=== PATIENT | female | born 1975 | race Caucasian/White ===

== ENCOUNTER 2024-12-05 11:15 | Day surgery (SDC) | payer BC, MEDICARE, SELFPAY ==
[2024-12-03 14:11] VITALS: BMI 28.5
[2024-12-05 11:32] VITALS: BP 113/69; PULSE 87; RESP 16; TEMP 36.1; O2SAT 100
--- NOTE | 2024-12-05 11:47 | P.HP_ITS ---
History of Present Illness *Admission Date: 12/05/24 *Reason for visit:: Howell syndrome *History of present illness: Mrs. Allison is a 49-year-old female with a history of stage II ascending colon cancer (T3 N0 M0) and had prior right hemicolectomy. 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 She is here for surveillance EGD and colonoscopy. The examination is deemed medically necessary for surveillance. The patient has been seen, interviewed and examined prior to the procedure by both myself and the anesthesia provider. [facility] Disclaimer: The information contained in this section may have been updated after the patient was seen, as this information can be updated by other users. Medical History Irritable bowel syndrome with mixed bowel habits Sucrase-isomaltase deficiency Anxiety Payr's syndrome Migraine H/O colon cancer, stage II Howell syndrome Seizures Surgical History H/O wrist surgery Status post VNS (vagus nerve stimulator) placement History of colon resection H/O: hysterectomy History of cholecystectomy Family History Family/Other Colon cancer Stomach cancer Social History Smoking Status: Never smoker alcohol intake: never substance use type: denies use current occupational status: disabled Travel in the last 8 weeks?: None Have you lived/traveled outside US in past 30 days?: No Contact w/someone who lives/traveled outside US past 30 days?: No Exposure to someone with infectious disease in past 14 days?: No Do you have a fever (greater than 100.4 F or 38 C)?: No Have you tested positive for COVID-19?: No Exposed to someone with COVID-19 in past 14 days?: No Do you have a sore throat?: No Do you have a cough?: No Do you have any weakness?: No Do you have any diarrhea?: No Are you experiencing any unusual bleeding?: No Do you have any muscle aches/pain?: No Do you have any abdominal pain?: No Are you experiencing loss of taste or smell?: No Review of Systems Review of Systems Review of systems (narrative): Negative *Cardiovascular Comments: Negative *Gastrointestinal Comments: Negative *Genitourinary Comments: Negative *Musculoskeletal Comments: Negative *Neurologic Comments: Negative Meds Home Medications and Allergies Home Medications ?Medication ?Instructions ?Recorded ?Confirmed ?Type Bacillus coagulans 10 billion cell 10 cell PO DAILY 09/30/24 12/03/24 History capsule,delayed release (Probiotic (B. coagulans)) cenobamate 200 mg tablet (Xcopri) 200 mg PO DAILY 09/30/24 12/03/24 History omeprazole 40 mg capsule,delayed 40 mg PO DAILY PRN gerd 09/30/24 12/03/24 History release onabotulinumtoxinA 200 unit 200 unit IM [id number] 09/30/24 12/03/24 History solution for injection (Botox) pediatric multivitamin no.7-folic 1 tab PO DAILY 09/30/24 12/03/24 History acid 100 mcg chewable tablet (Flintstones Multi-Vitamins Gummies) polyethylene glycol 3350 17 17 g PO DAILY 09/30/24 12/03/24 History gram/dose oral powder (Miralax) promethazine 25 mg tablet 25 mg PO NEEDED PRN per md 09/30/24 12/03/24 History topiramate 200 mg tablet 200 mg PO BID 09/30/24 12/03/24 History zonisamide 100 mg capsule 100 mg PO ONCE 09/30/24 12/03/24 History sod picosulf 10 mg-magnes 3.5 175 ml PO DAILY Bowel Prep 2 doses 11/20/24 12/05/24 Rx gram-citric 12 gram/175 mL oral #350 mL solution (Clenpiq) New Prescriptions to Start Prescriptions: Allergies Allergy/AdvReac Type Severity Reaction Status Date / Time No Known Allergies Allergy Verified 12/05/24 11:29 Exam Data for Last 24 hours Vital signs and Labs for Last 24 Hours: Temp Pulse Resp BP Pulse Ox O2 Del Method 97.0 F L 87 16 113/69 100 Room Air 12/05/24 11:32 12/05/24 11:32 12/05/24 11:32 12/05/24 11:32 12/05/24 11:32 12/05/24 11:32 I & O for Last 24 hours: Intake & Output 05/05/12/03/24 12/04/24 12/05/24 23:59 23:59 23:59 23:59 Weight 166 lb *Routine HEENT Exam Head: Present normocephalic Eye: Present EOMI and PERRL ENT: Present mucous membranes moist *Routine Neck Exam Neck: Present supple *Routine Respiratory Exam Respiratory: Present CTA bilaterally *Routine Cardiovascular Exam Cardiovascular: Present RRR *Routine Abdominal Exam Abdominal: Present soft and normoactive bowel sounds; Absent tenderness *Routine Rectal Exam Rectal:: deferred *Routine Genitalia Exam Genitalia:: deferred *Routine Extremities Exam Extremities: Absent cyanosis, clubbing or edema *Routine Skin Exam Skin: Present warm; Absent rash *Routine Neurological Exam Neurological: Present alert and oriented X3 Assessment and Plan *Assessment and plan (1) H/O colon cancer, stage II: Status: Acute Category: Medical Code(s): Z85.038 - Personal history of other malignant neoplasm of large intestine (2) Howell syndrome: Status: Acute Category: Medical Code(s): Z15.09 - Genetic susceptibility to other malignant neoplasm Plan A/P: 1. Prior history of colon cancer and history of Howell syndrome is the preprocedural diagnosis. The patient will be anesthetized/sedated using MAC sedation. The patient has been seen and examined. Cardiac and lung assessment prior to the examination is stable. Proceed with planned surveillance EGD and colonoscopy.
[2024-12-05] MEDS: LACTATED RINGERS 1000ML 1,000 ML 50 ML IV (11:48)
--- NOTE | 2024-12-05 11:49 | P.PCN_ITS ---
[facility] Procedure Note Date: 12/05/24 Time: 12:06 Procedure Note:: Upper Endoscopy Procedure Report: Esophagogastroduodenoscopy with cold biopsies Endoscopost: Sravan Brady II, MD Referring Physician: KENRICK Moraes [address] [place] [address], [address], [place] [address] Date of Procedure: December 05, 2024 Equipment: Olympus GIF 190 standard upper endoscope Sedation: MAC sedation Indications: Mrs. Allison is a 49-year-old female who was diagnosed with stage II ascending colon cancer (T3 N0 M0) at the age of 39 and had right hemicolectomy. She was tested positive for MSH3 and MSH6 genetic deletion mutations consistent with Howell syndrome. The patient has had routine surveillance endoscopy and colonoscopy and her last examinations were October 2023. At that time she had a normal colonoscopy and endoscopy. She does have longstanding dyspepsia and IBS. She also has sucrase isomaltase deficiency. She does report incomplete defecation. She reports bloating, gassiness, heartburn, reflux and dyspepsia. She has alternating constipation and diarrhea. She reports no rectal bleeding. Procedure: Prior to the procedure, a history and physical exam was performed, and patient's medications and allergies were reviewed. The risks, benefits and alternatives of the sedation and procedure were discussed with the patient. All questions were answered and informed consent was obtained. The patient was brought to the procedure room. Patient identification and proposed procedure were verified by the physician and the nurse. The patient was placed in a left lateral decubitus position and the scope was passed under direct vision. Throughout the procedure, the patient's blood pressure, pulse, and oxygen saturations were monitored continuously. The upper GI endoscopy was accomplished without difficulty. The patient tolerated the procedure well. Findings: The scope was passed directly into the upper esophagus and advanced to the fourth portion of duodenum and proximal jejunum. 4 cold biopsies were taken in the proximal jejunum to be sent for disaccharidase assay. The jejunum and the post bulbar duodenum, ampulla and duodenal bulb were normal with normal mucosa and conniventes. The scope was withdrawn through a normal duodenal bulb and pylorus into the stomach. There was bile reflux with moderate linear reactive gastropathy of the antrum. The body and fundus of the stomach were normal. Upon retroflexion there was no hiatal hernia. Cold biopsies were taken from the antrum. The scope was then withdrawn into the esophagus. There was no evidence of reflux esophagitis or Thornton's. The remainder of the esophageal mucosa was normal. Impression: 1. Bile reflux with moderate linear reactive gastropathy of antrum Plan: I will follow-up the biopsies and check disaccharidase assay (for confirmation of CSID). I do feel that she would benefit from Motegrity. Motegrity (prucalopride) is a prokinetic/promotility agent that does improve colonic emptying. This medication also improves motility in the upper digestive tract and has been shown to reduce esophageal acid/peptic fluid exposure and accelerates gastric (stomach) emptying. I will proceed with surveillance colonoscopy.
--- NOTE | 2024-12-05 12:09 | P.PCN_ITS ---
[facility] Procedure Note Date: 12/05/24 Time: 12:21 Procedure Note:: Colonoscopy Procedure Report: Colonoscopy Endoscopist: Sravan Brady II, MD Referring physician: KENRICK Moraes, [address] [place] [address], [address], [place] [address] Date of Procedure: December 05, 2024 Equipment: Olympus 190 variable stiffness pediatric colonoscope Sedation: MAC sedation Indication: Mrs. Allison is a 49-year-old female who was diagnosed with stage II ascending colon cancer (T3 N0 M0) at the age of 39 and had right hemicolectomy. She was tested positive for MSH3 and MSH6 genetic deletion mutations consistent with Howell syndrome. The patient has had routine surveillance endoscopy and colonoscopy and her last examinations were October 2023. At that time she had a normal colonoscopy and endoscopy. She does have longstanding dyspepsia and IBS. She also has sucrase isomaltase deficiency. She does report incomplete defecation. She reports bloating, gassiness, heartburn, reflux and dyspepsia. She has alternating constipation and diarrhea. She reports no rectal bleeding. The patient does have a very strong family history (uncle, half-brother and first cousin) of intestinal or colon cancer. Procedure: Prior to the procedure, a history and physical exam was performed, and patient's medications and allergies were reviewed. The risks, benefits and alternatives of the sedation and procedure were discussed with the patient. All questions were answered and informed consent was obtained. The patient was brought to the procedure room. Patient identification and proposed procedure were verified by the physician and the nurse. The patient was placed in a left lateral decubitus position and the scope was passed under direct vision. Throughout the procedure, the patient's blood pressure, pulse, and oxygen saturations were monitored continuously. The colonoscopy was accomplished without difficulty. The patient tolerated the procedure well. Findings: On digital rectal examination there was normal rectal tone. There were no external hemorrhoids. The colonoscope was introduced through the anal canal to the rectum and advanced to the ileocolonic anastomosis. The scope was then advanced a short distance into the ileum which appeared normal. The scope was then withdrawn into the colon. The anastomosis was normal and the remaining transverse, descending, sigmoid and rectum were grossly normal. There were no mucosal abnormalities identified. Upon retroflexion within the rectum there were grade 1-2 internal hemorrhoids. The preparation was excellent throughout with [place] Preparation Score of 9. The cecal time was 12 minutes. Impression: 1. Normal colonoscopy with intubation of the terminal ileum 2. Prior right hemicolectomy with normal anastomosis Plan: I would recommend repeat surveillance colonoscopy again in 2 years. I am going to recommend Motegrity and will electronically send this to the pharmacy. I would also recommend iaeo-zaq-saphxes herbal Iberogast twice daily and diaphragmatic breathing. One underutilized therapy for upright GERD (functional GERD) is diaphragmatic breathing. It would be worth implementing diaphragmatic breathing on a regular basis. Recent studies have shown that breathing exercises with diaphragmatic breathing can enhance the crural diaphragm strength at the lower esophageal sphincter and strengthen the diaphragm barrier mechanism, reduce gastroesophageal reflux and subsequent damage. Especially in upright GERD, diaphragmatic breathing reduces the number of postmeal reflux events by increasing the difference between LES (lower esophageal sphincter) and gastric pressure. In other words, it changes pressure gradients that would otherwise favor gastroesophageal reflux. Pressure gradients are often related to gas pressure and any person with belching related reflux with associated bloating are very apt to benefit from diaphragmatic breathing.
[2024-12-05 12:26] VITALS: BP 110/62; PULSE 95; RESP 15; TEMP 36.1; O2SAT 97
[2024-12-05 12:36] VITALS: BP 115/75; PULSE 90; RESP 16; O2SAT 100
--- NOTE | 2024-12-05 12:40 | EXP.ANES.CKL ---
[facility] Disclaimer: The information contained in this section may have been updated after the patient was seen, as this information can be updated by other users. Medical History (Updated 12/05/24 @ 12:28 by Sravan Brady II, MD) Irritable bowel syndrome with mixed bowel habits Sucrase-isomaltase deficiency Anxiety Payr's syndrome Migraine H/O colon cancer, stage II Howell syndrome Seizures Surgical History H/O wrist surgery Status post VNS (vagus nerve stimulator) placement History of colon resection H/O: hysterectomy History of cholecystectomy Family History Family/Other Colon cancer Stomach cancer Social History Smoking Status: Never smoker alcohol intake: never substance use type: denies use current occupational status: disabled Travel in the last 8 weeks?: None Have you lived/traveled outside US in past 30 days?: No Contact w/someone who lives/traveled outside US past 30 days?: No Exposure to someone with infectious disease in past 14 days?: No Do you have a fever (greater than 100.4 F or 38 C)?: No Have you tested positive for COVID-19?: No Exposed to someone with COVID-19 in past 14 days?: No Do you have a sore throat?: No Do you have a cough?: No Do you have any weakness?: No Do you have any diarrhea?: No Are you experiencing any unusual bleeding?: No Do you have any muscle aches/pain?: No Do you have any abdominal pain?: No Are you experiencing loss of taste or smell?: No [facility] Anesthesia Checklist Patient Identification Patient Identification: Arm Band and Verbal (Name & ) Structural Data Admitted From: Home Planned Operative Procedure/s: EGD and colonoscopy Consent for Planned Operative Procedure(s) Verified: Yes Verified Documents: Surgical Consent NPO Status Verified Time NPO: 00:00 Chart Verification Results Verified: None Additional verifications Anesthesia Reactions: No Airway Assessment Mallampati Score:: Class II C-Spine Mobility Assessed: Yes TMJ Mobility Assessed: Yes Dentition: Good Dentition Neurological Assessment Level of Consciousness: Awake, Alert and Appropriate Hx Seizures: Yes Numbness or tingling in extremities: No Anesthesia Plan Anesthesia Risk discussed: Yes Anesthesia Plan: Verified ASA Class: II Anesthesia Type: MAC
[2024-12-05 12:46] VITALS: BP 102/73; PULSE 88; RESP 16; O2SAT 100
[2024-12-05 12:56] VITALS: BP 108/70; PULSE 89; RESP 16; O2SAT 100
[2024-12-05 13:06] VITALS: BP 106/74; PULSE 86; RESP 16; O2SAT 99
[2024-12-09 16:43] LABS: Disclaimer Notes (.); Interpretation Notes (.); Lactase 72.27 (>/= 14.0); Maltase 267.86 (>/= 110.0); Palatinase 16.2 (>/= 8.5); Reference Notes (.); Sucrase 78.71 (>/= 25.0)
== END 2024-12-05 13:06 | disposition home or self-care (01) ==
PROVIDERS: PCP Nurse Practitioner Family; Visit Provider Internal Medicine Gastroenterology
PROC: 0DJ08ZZ Inspection of Upper Intestinal Tract, Via Natural or Artificial Opening Endoscopic (ICD-10-PCS; CPT 45378; principal; 2024-12-05 13:00)
DX: Z12.11 Encounter for screening for malignant neoplasm of colon (principal); Z85.038 Personal history of other malignant neoplasm of large intestine; Z15.09 Genetic susceptibility to other malignant neoplasm; Z90.49 Acquired absence of other specified parts of digestive tract; R10.13 Epigastric pain; K58.2 Mixed irritable bowel syndrome; R14.0 Abdominal distension (gaseous); R12 Heartburn; K31.9 Disease of stomach and duodenum, unspecified; K64.8 Other hemorrhoids
CPT/HCPCS: 43239; 45378; 82657; J2704; J7120

== ENCOUNTER 2025-03-03 09:40 | Outpatient (CLI) | payer BC, MEDICARE, SELFPAY ==
--- OUTSIDE RECORDS SUMMARY | 2025-03-03 09:45 | XMS_ITS | Clinical Summary ---
Author Organization [facility] Address [address], [address] [place] [address] Care Team Providers Care Cheese Packer Name Role Phone SolimanDorene APRN - PSYCH THERAPIST Primary Care Prov ider Allergies No known active allergies Medications oxyCODONE (ROXICODONE) 5 MG immediate release tablet Take 1 tablet by mouth every 4 hours as needed for Pain. Active lacosamide (VIMPAT) 100 MG TABS tablet Take 1 tablet by mouth 2 times daily. Active zonisamide (ZONEGRAN) 100 MG capsule Take 6 capsules by mouth daily Active citalopram (CELEXA) 10 MG tablet Take 1 tablet by mouth daily Active busPIRone (BUSPAR) 10 MG tablet Take 1 tablet by mouth 3 times daily Active topiramate (TOPAMAX SPRINKLE) 25 MG capsule Take 1 capsule by mouth 2 times daily Active metoclopramide (REGLAN) 10 MG tablet Take 1 tablet by mouth 3 times daily as needed 90 tablet 0 07/03/2015 Active Probiotic Product (PROBIOTIC BLEND PO) Take by mouth Active HYDROcodone-loren taminophen (NORCO) 7.5-325 MG per tablet Take 1 tablet by mouth every 6 hours as needed for Pain. Max Daily Amount: 4 tablets Active Cenobamate (XCOPRI PO) Take by mouth Acti ve Cyanocobalamin (VITAMIN B12 PO) Take by mouth Active Onabotulinumtox Valerie (BOTOX IJ) Inject as directed Every 3 months Active Social History Tobacco Use Types Packs/Day Years Used Date Smoking Tobacco: Never Alcohol Use Standard Drinks/Week Comments No 0 (1 standard drink = 0.6 oz pur e alcohol) AUDIT-C Answer Date Recorded Q1: How often do you have a drink containing alcohol? Never 08/28/2023 Q2: How many drinks containi ng alcohol do you have on a typical day when you are drinking? Patient does not drink Q3: How often do you have si x or more drinks on one occasion? Never 08/28/2023 Interpersonal Safety Domain Source: IP Abuse Scr eening Answer Date Recorded How often does anyone, wilton morfin family and friends, physically hurt you? Not on file 08/28/2023 How often does anyone, wilton morfin family and friends, scream or curse at you? Not on file 08/28/2023 How often does anyone, wilton morfin family and friends, insult or talk down to you? Not on file 08/28/2023 How often does anyone, wilton morfin family and friends, threaten you with harm? Not on file 08/28/2023 Read-Only, Retired: Physical Abuse Denies 08/28/2023 Read-Only, Retired: Verbal Abuse Denies 08/28/2023 Read-Only, Retired: Emotional abuse Denies 08/28/2023 Read-Only, Retired: Financial Abuse Denies 08/28/2023 Read-Only, Retired: Sexual abuse Denies 08/28/2023 Comments No Sex and Gender Information Value Date Recorded Sex Assigned at Not on file Legal Sex Female 3:42 AM EST Gender Identity Not on file Sexual Orientation Not on file Last Filed Vital Signs Vital Sign Reading Time Taken Comments Blood Pressure 115/79 08/28/2023 12:41 PM EST Pulse 94 08/28/2023 12:41 PM EST Temperature 36.6 C (97.9 F) 08/28/2023 12:41 PM EST Respiratory Rate 18 08/28/2023 12:41 PM EST Oxygen Saturation 100% 08/28/2023 12:41 PM EST Inhaled Oxygen Concentration - - Weight 67.1 kg (148 lb) 08/28/2023 12:41 PM EST Height 162.6 cm (5' 4 ) 08/28/2023 12:41 PM EST Body Mass Index 25.4 08/28/2023 12:41 PM EST Plan of Treatment Health Maintenance Due Date Last Done Comments Depression Screen 1987 HIV screen 1990 Hepatitis C screen 1993 Lipids 2015 Colonoscopy 2020 Colorectal Cancer Screen 2020 FIT/FOBT: Average risk 2020 Fecal-DNA (Cologuard): Average risk 2020 Sigmoidoscopy/CT colonography 2020 Annual Wellness Visit (Medicare) 08/28/2023 COVID-19 Vaccine ( season) 2024 04/14/2021, 03/23/2021 Breast cancer screen 10/27/2024 10/27/2022, 09/24/2021, 07/02/2020, Additional history exists Flu vaccine (#1) 02/28/2025 06/09/2022 DTaP/Tdap/Td vaccine (2 - Td or Tdap) 06/18/2028 06/18/2018, 05/28/2003 Hepatitis B vaccine Completed 09/13/2004, 04/12/2004, 03/11/2004 Hepatitis A vaccine Aged Out 12/26/2018, 8 No longer eligible based on patient's age to complete this topic Hib vaccine Aged Out No longer eligi ble based on patient's age to complete this topic Meningococcal (ACWY) vaccine Aged Out No longer eligible based on patient's age to complete this topic Meningococcal B vaccine Aged Out No l onger eligible based on patient's age to complete this topic Pneumococcal 0-49 years Vaccine Aged Out No longer eligible based on patient's age to complete this topic Polio vaccine Aged Out No longer elig ible based on patient's age to complete this topic Insurance [facility]IC[facility] Care Teams Cheese Packer Relationship Specialty Start Date End Date Dorene Soliman APRN - SOFIA [address] [place] [id number] PCP - General Nurse Practitioner 08/28/23
--- OUTSIDE RECORDS SUMMARY | 2025-03-03 09:45 | XMS_ITS | Clinical Summary ---
Author Organization Healthcare Address [address] [address] Care Team Providers Care Decay Control Operator Name Role Phone Dorene Soliman APRN Primary Care Provider [phone]- [phone] Social History Tobacco Use Types Packs/Day Years Used Date Smoking Tobacco: Never Assessed Comments Unknown Sex and Gender Information Value Date Recorded Sex Assigned at Not on file Legal Sex Female 8:14 PM EDT Gender Identity Not on file Sexual Orientation Not on file Plan of Treatment Health Maintenance Due Date Last Done Comments [facility]-Depression Screening 1975 [facility]-/Child/Adol SDOH Screenings 1975 [facility]- SDOH Screenings 1993 [facility]-Adult SDOH Screenings 1993 [facility]-DTaP,Tdap,and Td Vaccine s (1 - Tdap) 1994 [facility]-Hepatitis B Vaccines (1 of 3 - 19+ 3-dose series) 1994 [facility]-Pap Smear 1996 [facility]-Cervical Cancer Screening 2005 [facility]-HPV/Cotest 2005 CT Colonography 2020 Colonoscopy 2020 FIT-DNA 2020 FIT 2020 FOBT 2020 Sigmoidoscopy 2020 [facility]-Colorectal Cancer Screening 2020 QEA-UXQCI-15 Vaccine (1 - 20 24-25 season) 2024 [facility]-Influenza Vaccine (#1) 2025 [facility]-Zoster Vaccines (1 of 2) 2025 HPV Vaccines Aged Out No longer eligi ble based on patient's age to complete this topic [facility]-HIB Vaccines Aged Out No longer e ligible based on patient's age to complete this topic [facility]-Hepatitis A Vaccines Aged Out No longer eligible based on patient's age to complete this topic [facility]-IPV Vaccines Aged Out No longer e ligible based on patient's age to complete this topic [facility]-Pneumococcal Vaccine: Pediatrics (0 to 5 Years) and At-Risk Patients (6 to 49 Years) Aged Out No long er eligible based on patient's age to complete this topic [facility]-Rotavirus Vaccines Aged Out No lo nger eligible based on patient's age to complete this topic Insurance TED Care Teams Decay Control Operator Relationship Specialty Start Date End Date Dorene Soliman APRN [address] [facility] [facility] [address] [place] [address] PCP - General 12/11/20
--- OUTSIDE RECORDS SUMMARY | 2025-03-03 09:45 | XMS_ITS | Encounter Summary ---
Author Organization Healthcare Address [address] [place] [address] Care Team Providers Care Marketing Researcher Name Role Phone Dorene Soliman APRN Primary Care Provider [phone]- [phone] Reason for Visit * Reason Comments Med Refill Encounter Details Date Type Department Care Team (Late st Contact Info) Description 02/25/2021 Refill [facility] [address] [place] [address] Helen Espitia APRN [address] [facility] [address] [place] [address] Social History Tobacco Use Types Packs/Day Years Used Date Smoking Tobacco: Never Assessed Comments Unknown Sex and Gender Information Value Date Recorded Sex Assigned at Not on file Legal Sex Female 8:14 PM EDT Gender Identity Not on file Sexual Orientation Not on file documented as of this encounter Miscellaneous Notes * Telephone Encounter - Cuca Lilly - 06/21/2021 12:23 PM EST Patient not seen by provider, no notes in Epic documented in this encounter Plan of Treatment Not on file documented as of this encounter Visit Diagnoses Not on filedocumented in this encounter Care Teams Marketing Researcher Relationship Specialty Start Date End Date Dorene Soliman APRN [address] [place] [address] PCP - General 12/11/20 documented as of this encounter
--- NOTE | 2025-03-03 10:00 | NM_ITS ---
FINAL REPORT TECHNIQUE: Sequential anterior images were obtained after the ingestion of 2 whole eggs, 2 pieces of toast, and water radiolabeled with 0.53 mCi technetium 99M sulfur colloid. CLINICAL HISTORY: Abnormal CT scan of stomach, BLOATING 10:00AM 0.53 MCI TC SULFUR COLLOID INJ INTO 2 WHOLE EGGS, 2 TOAST AND WATER FINDINGS: GASTRIC EMPTYING SCAN Static images show normal emptying of the stomach into the small bowel. Based on the time activity curve, the estimated half-emptying time is 37 minutes. IMPRESSION: Normal gastric emptying study. Reviewed, Interpreted and Dictated by Carlos Verma MD Transcribed by Cande Morel Authenticated and [facility]
[2025-03-03] MEDS: TC99M SULF.COLLOID;1 DOSE (UP TO 20 MCI) IV (10:20)
== END 2025-03-03 23:59 | disposition home or self-care (01) ==
LOC: RAD 09:42
PROVIDERS: PCP Nurse Practitioner Family; Visit Provider Internal Medicine Gastroenterology
DX: K31.89 Other diseases of stomach and duodenum (principal); K31.84 Gastroparesis
CPT/HCPCS: 78264; A9541